=== PATIENT | male | born 1945 | race Caucasian/White ===

== ENCOUNTER 2016-09-22 13:26 | Emergency (ER) | payer OTHER ==
[~2016-09-22] VITALS: Ht 167.6 cm; Wt 85.5 kg
[~2016-09-22 13:26] MED LIST: TRAM50TA2 PO; [UNRECOGNIZED DRUG - REMARK]
[2016-09-22 13:43] VITALS: Ht 167.6 cm; Wt 85.5 kg
[2016-09-22] MEDS ORDERED: ACETAMINOPHEN 325 MG TAB PO STA (15:11)
--- NOTE | 2016-09-22 15:41 | RADRPT ---
PROCEDURE: XR Chest. CLINICAL INDICATION: Chest pain/shortness of breath TECHNIQUE: Chest PA and lateral COMPARISON: 03/21/2014 FINDINGS: The mediastinal structures are unremarkable. There is calcification of the thoracic aorta (consiste nt with atherosclerosis). The heart is normal in size and configuration. The pulmonary vascularity is normal. The lung matos are unremarkable. No consolidation is identified. The pleural spaces are unremarkable. There are senescent changes of the axial skeleton. IMPRESSION: Calcification of the thoracic aorta (consistent with atherosclerosis). No evidence for active cardiopulmonary disease. RPTAT: [facility] .David Baum MD, Date Time Electronically viewed and signed by .David Baum MD, on 09/22/2016 15:40 .B/
[2016-09-22] MEDS ORDERED: ACET325T33 PO (15:52)
[2016-09-22] MEDS ORDERED: BENZ100C70 PO (15:52)
[2016-09-22] MEDS ORDERED: LORA-186 PO (15:52)
--- NOTE | 2016-09-22 17:05 | ERD ---
ER Documentation Chief Complaint Date/Time DATE: 09/22/16 TIME: 17:02 Chief Complaint COUGH, FEVER, MALAISE X3 DAYS HPI This is a 71-year-old male history of diabetes type 2, high cholesterol presenting to the emergency room complaining cough, fever and malaise for the past 2 days. Patient denies any shortness of breath. Denies any nausea, vomiting, diarrhea. Patient states that he has not tried any medication for this. patient admits to having nasal congestion for ROS All systems reviewed and are negative except as per history of present illness. Medications Home Meds Active Scripts Benzonatate* (Tessalon Perle*) 100 Mg Capsule, 100 MG PO Q8H Y for COUGH, #20 CAP Prov:BRENT DAWSON PA-C 09/22/16 Loratadine* (Claritin*) 10 Mg Tablet, 10 MG PO DAILY, #20 TAB Prov:BRENT DAWSON PA-C 09/22/16 Acetaminophen* (Tylenol*) 325 Mg Tablet, 2 TAB PO Q6 Y for PAIN AND OR ELEVATED TEMP, #20 TAB Prov:BRENT DAWSON PA-C 09/22/16 Tramadol HCl (Tramadol HCl) 50 Mg Tablet, 50 MG PO Q4 Y for PAIN, #14 TAB Prov:VENUS ORELLANA PA-C 10/17/15 Reported Medications [Unknown For Dm] No Conflict Check 03/29/12 Allergies Allergies: Coded Allergies: No Known Allergy (Verified , 04/02/13) PMhx/Soc History of Surgery: Yes (throat surgery 15 years ago) Anesthesia Reaction: No Hx Neurological Disorder: No Hx Respiratory Disorders: No Hx Cardiac Disorders: No Hx Psychiatric Problems: No Hx Miscellaneous Medical Probl: Yes (DM, ENLARGE PROSTATE) Hx Alcohol Use: No Hx Substance Use: No Hx Tobacco Use: No Smoking Status: Never smoker Physical Exam Vitals Vital Signs Date Time Temp Pulse Resp B/P Pulse Ox O2 Delivery O2 Flow Rate FiO2 09/22/16 13:43 99.7 93 16 107/63 95 Physical Exam GENERAL: well-developed/well-nourished, in no apparent distress, non-toxic appearing HEAD: NC/AT, no swelling noted in frontal or maxillary areas EARS: bilateral tympanic membrane is intact without erythema or effusion NARES: congested THROAT: oropharynx erythematous without exudates, no tonsil enlargement, post nasal drip EYES: Conjunctiva normal NECK: Supple, no lymphadenopathy PULM: CTA bilaterally, no rales, rhonchi, or wheezing heard CV: Normal S1S2, RRR, good capillary refill GI: Soft, non-distended, normal bowel sounds, non-tender BACK: No midline tenderness, no masses EXT No clubbing, cyanosis, or edema NEURO: Alert and Orientated SKIN: Intact, normal turgor PSYCH: Normal mood and mentation Results 24 hrs Current Medications Medications (Trade) Dose Ordered Sig/Hailey Route PRN Reason Start Time Stop Time Status Last Admin Dose Admin Acetaminophen (Tylenol Tab) 650 mg ONCE STAT PO 09/22/16 15:11 09/22/16 15:14 DC 09/22/16 15:17 Procedures/MDM This is a 71-year-old male presenting to the emergency department complaining of cough, fever, malaise the past 3 days which is likely due to a viral upper respiratory infection. On examination patient had no evidence of respiratory distress, his lungs are clear to auscultation bilaterally. He was breathing well on room air, he appears well. This is likely a viral upper respiratory infection. I have low suspicion for pneumonia, pleural effusion, strep pharyngitis, otitis media or acute cardiopulmonary conditions. Chest x-ray did not show any evidence of acute pathology. Radiologist stated: Calcification of the thoracic aorta (consistent with atherosclerosis). No evidence for active cardiopulmonary disease. Diagnostic testing has been provided to the patient. Prescription for Tessalon Perles, Tylenol and Claritin was provided. I have discussed with patient to follow-up with his primary care physician. Discussed return the ER for any worsening symptoms. Patient understands and agrees with plan Departure Diagnosis: Primary Impression: URI (upper respiratory infection) Condition: Stable Patient Instructions: Preventing Common Respiratory Infections, Uri, Viral, No Abx (Adult) Additional Instructions: Visite a chaudhry marcin salgado para un EXAMEN.Regrese a estas instalaciones si no se mejora alin esperbamos o alin le dijimos. [place] toda la medicina nelly y alin se le indic. Regrese a estas instalaciones si no se mejora alin esperbamos o alin le dijimos. BRENT DAWSON PA-C Sep 22, 2016 17:04
== END 2016-09-22 16:10 | disposition home or self-care (01) ==
LOC: FTE 13:26
DX: J06.9 Acute upper respiratory infection, unspecified (principal); E11.9 Type 2 diabetes mellitus without complications
CPT/HCPCS: 71020

== ENCOUNTER 2018-05-17 17:13 | Emergency (ER) | END 2018-05-17 19:39 | disposition home or self-care (01) ==